=== PATIENT | male | born 1990 | race African-American/Black ===

== ENCOUNTER 2020-04-28 13:51 | Emergency (ER) | payer BC ==
[~2020-04-28] VITALS: Ht 167.6 cm; Wt 79.0 kg
[2020-04-28 17:29] VITALS: BP 122/78
== END 2020-04-28 17:32 | disposition home or self-care (01) ==
LOC: ER 14:34
DX: S00.03XA Contusion of scalp, initial encounter (principal); W50.0XXA Accidental hit or strike by another person, initial encounter; Y93.67 Activity, basketball; Y92.310 Basketball court as the place of occurrence of the external cause
CPT/HCPCS: 99284

== ENCOUNTER 2024-03-28 16:26 | Emergency (ER) | payer BC, OTHER ==
[~2024-03-28] VITALS: Ht 172.7 cm; Wt 88.0 kg
[2024-03-28 16:28] VITALS: O2SAT 100
[2024-03-28] MEDS: HYDROCODONE/ACETAMINOPHEN 5/325MG TABLET PO ONE (18:24)
[2024-03-28] MEDS ORDERED: METH-653 MT (19:16)
[2024-03-28] MEDS ORDERED: IBUP-2030 MT (19:16)
[2024-03-28 19:51] VITALS: BP 145/91; PULSE 85; RESP 18; TEMP 36.83628; O2SAT 100
== END 2024-03-28 19:53 | disposition home or self-care (01) ==
LOC: ER 16:26
DX: M54.2 Cervicalgia (principal); R51.9 Headache, unspecified; V49.49XA Driver injured in collision with other motor vehicles in traffic accident, initial encounter; Y93.89 Activity, other specified; Y92.89 Other specified places as the place of occurrence of the external cause; Y99.8 Other external cause status
CPT/HCPCS: 71045; 99284